=== PATIENT | female | born 1940 | race Hispanic/Latino ===

== ENCOUNTER → 2019-02-22 | Day surgery (SDC) | payer MEDICARE ==
[2019-02-13 16:13] LABS: BASOPHILS # (AUTO) 0.1 (0.0-0.1); BASOPHILS % 1.1 % (0.0-1.0); EOSINOPHILS # (AUTO) 0.3 (0.0-0.4); EOSINOPHILS % 3.4 % (0.0-6.0); HEMATOCRIT 40.4 % (34.2-44.1); HEMOGLOBIN 13.1 g/dL (12.0-16.0); LYMPHOCYTES # (AUTO) 1.5 (1.0-3.2); LYMPHOCYTES % 20.1 % (18.0-39.1); MEAN CORPUSCULAR HEMOGLOBIN 30.9 pg (28-32); MEAN CORPUSCULAR HGB CONC 32.4 g/dL (31-35); MEAN CORPUSCULAR VOLUME 95.3 fL (81-99); MONOCYTES # (AUTO) 0.5 (0.2-0.8); MONOCYTES % 7.3 % (4.4-11.3); NEUTROPHILS # (AUTO) 4.9 (2.1-6.9); NEUTROPHILS % 67.8 % (38.7-80.0); PLATELET COUNT 225 x10e3/uL (140-360); RED BLOOD COUNT 4.24 x10e6/uL (3.6-5.1); RED CELL DISTRIBUTION WIDTH 13.6 % (11.7-14.4)
[2019-02-13 16:22] LABS: INR 0.86; PROTHROMBIN TIME 12.2 seconds (11.9-14.5)
[2019-02-13 16:23] LABS: PARTIAL THROMBOPLASTIN TIME 26.7 seconds (23.8-35.5)
[2019-02-13 16:31] LABS: ANION GAP 13.3 mmol/L (8-16); CALCIUM 9.4 mg/dL (8.4-10.2); CREATININE, SERUM 1.01 mg/dL (0.57-1.11); POTASSIUM 3.3 mmol/L (3.5-5.1)
[~2019-02-22] MED LIST: ATORVASTATIN CA10 MG PO; LISINOPRIL2.5 MG PO; METFORMIN HCL500 MG PO; PROPOFOL IV EMULSION 10 MG/ML 20 ML VIAL ONE
[2019-02-22 11:45] VITALS: BP 132/78
--- OUTSIDE RECORDS SUMMARY | 2019-04-16 16:55 | XMS REPORT ---
Author [facility] Address Unknown Phone Unavailable Care Team Providers Care [facility] Supervisor Name Role Phone Unavailable Unavailable Payers Payer Name Policy Type Policy Number Effective Date Expiration Date Problems This patient has no known problems. Allergies, Adverse Reactions, Alerts This patient has no known allergies or adverse reactions. Medications This patient has no known medications. Results Test Description Test Time Test Comments Text Results Atomic Results Result Comments - [facility] 2019-01-30 08:00:00 Name: ANDREINA GOMES [facility] : 1940 Age/S: 78 / F [address] [facility] Unit #: [id number] Loc: [place] [address] Phys: Eleanor Mark [employer] Acct: [id number] Dis Date: Status: REG CLI PHONE #: [phone] Exam Date: 01/30/2019 07 FAX #: [phone] Reason: R74.8 EXAMS: CPT CODE: [id number] [facility] [id number] HISTORY: R74.8 TECHNIQUE: Static grayscale and color Doppler images from real time sonographic evaluation of the right upper quadrant. Spectral waveform analysis of the portal vein. COMPARISON: None FINDINGS: LIVER: Normal echogenicity without focal lesion. No intrahepatic biliary dilation. Hepatopedal flow identified within the portal vein. GALLBLADDER: Mobile tumefactive sludge within the gallbladder lumen, measuring 0.6 cm and 1.0 cm. Mild gallbladder wall thickening up to 5 mm. No pericholecystic fluid. Technologist reports positive sonographic Parham's sign. COMMON DUCT: Normal caliber at 4 mm. PANCREAS: Partially obscured. No visible pancreatic abnormality. RIGHT KIDNEY: Normal parenchymal echogenicity. Measures 8.7 x 4.1 x 4.4 cm. No hydronephrosis. OTHER: There is no free fluid. IMPRESSION: Mild gallbladder wall thickening. Small tumefactive sludge. Technologist reports positive sonographic Parham sign. Recommend HIDA scan to evaluate for cholecystitis. No biliary dilation. at 0800 Reported and signed by: Ana Maria Hayes D.O. CC: Chan Seo; Eleanor Mark NP Technologist: ADINA CALDWELL RT(R),JULIAN Trnscb Date/Time: 01/30/2019 (0800) [id number] Orig Print D/T: S: 01/30/2019 (0804) Probe: PAGE 1 Signed Report
== END | disposition home or self-care (01) ==
LOC: OR 16:53
PROVIDERS: ATTEND Internal Medicine
DX: K29.50 Unspecified chronic gastritis without bleeding (principal); D12.4 Benign neoplasm of descending colon; K52.9 Noninfective gastroenteritis and colitis, unspecified; B96.81 Helicobacter pylori [H. pylori] as the cause of diseases classified elsewhere; K44.9 Diaphragmatic hernia without obstruction or gangrene; E11.22 Type 2 diabetes mellitus with diabetic chronic kidney disease; I12.9 Hypertensive chronic kidney disease with stage 1 through stage 4 chronic kidney disease, or unspecified chronic kidney disease; N18.9 Chronic kidney disease, unspecified; I49.1 Atrial premature depolarization; E78.2 Mixed hyperlipidemia; Z01.810 Encounter for preprocedural cardiovascular examination; Z01.812 Encounter for preprocedural laboratory examination; Z79.84 Long term (current) use of oral hypoglycemic drugs
CPT/HCPCS: 36415 ×2; 43239; 45385; 80048; 82948; 85025; 85610; 85730; 93005; J2704